=== PATIENT | male | born 1955 | race Caucasian/White ===

== ENCOUNTER → 2016-12-29 | Outpatient (REF) ==
[~2016-12-29] MED LIST: FLEXERIL 1010 MG/TAB PO; FLUOROURACIL5% TP; GLUCOPHAGE1000 MG PO; NORCO 325 MG-51 TAB PO; PRINIVIL10 MG PO; PROSCAR 5MG5 MG PO; TRADJENTA5 MG PO; ZOCOR 10MG10 MG PO
== END ==
LOC: WSOH 09:38
DX: Z02.4 Encounter for examination for driving license (principal)

== ENCOUNTER → 2016-12-31 | Outpatient (REF) | LOC: WSOH 13:04 | DX: Z01.83 Encounter for blood typing (principal) ==

== ENCOUNTER → 2017-02-17 | Outpatient (REF) | LOC: ZLAB.WCH 11:27 | DX: Z01.89 Encounter for other specified special examinations (principal) ==

== ENCOUNTER 2017-04-02 05:09 | Emergency (ER) | payer BC ==
[~2017-04-02] VITALS: Ht 175.3 cm; Wt 96.4 kg
[2017-04-02 05:11] VITALS: BP 167/97; TEMP 98
[2017-04-02] MEDS ORDERED: PRINIVIL10 MG PO (05:15)
[2017-04-02] MEDS ORDERED: GLUCOPHAGE1000 MG PO (05:16)
[2017-04-02] MEDS ORDERED: FLUOROURACIL5% TP (05:16)
[2017-04-02] MEDS ORDERED: TRADJENTA5 MG PO (05:16)
[2017-04-02] MEDS ORDERED: PROSCAR 5MG5 MG PO (05:16)
[2017-04-02] MEDS ORDERED: ZOCOR 10MG10 MG PO (05:16)
[2017-04-02] MEDS ORDERED: NORCO 325 MG-51 TAB PO (06:01)
[2017-04-02] MEDS ORDERED: FLEXERIL 1010 MG/TAB PO (06:01)
[2017-04-02 06:10] VITALS: PULSE 85
== END 2017-04-02 06:10 | disposition home or self-care (01) ==
LOC: COL.ER 05:09
DX: S13.9XXA Sprain of joints and ligaments of unspecified parts of neck, initial encounter (principal); S43.401A Unspecified sprain of right shoulder joint, initial encounter; W22.8XXA Striking against or struck by other objects, initial encounter; E11.9 Type 2 diabetes mellitus without complications; I10 Essential (primary) hypertension; Z79.84 Long term (current) use of oral hypoglycemic drugs

== ENCOUNTER 2017-04-06 10:25 | Outpatient (RCR) | payer OTHER | END 2017-04-16 10:26 | LOC: WSOH 10:25 | DX: S50.11XA Contusion of right forearm, initial encounter (principal); S16.1XXA Strain of muscle, fascia and tendon at neck level, initial encounter; W20.8XXA Other cause of strike by thrown, projected or falling object, initial encounter; Y99.0 Civilian activity done for income or pay ==

== ENCOUNTER → 2017-06-05 | Outpatient (REF) | LOC: ZLAB.WCH 11:39 | DX: Z01.89 Encounter for other specified special examinations (principal) ==

== ENCOUNTER → 2017-07-15 | Outpatient (REF) | LOC: WSOH 10:20 | DX: Z02.89 Encounter for other administrative examinations (principal) ==

== ENCOUNTER → 2017-09-21 | Outpatient (REF) | LOC: ZLAB.WCH 17:48 | DX: Z01.89 Encounter for other specified special examinations (principal) ==

== ENCOUNTER → 2018-01-21 | Outpatient (REF) | LOC: ZLAB.WCH 16:12 | DX: Z01.89 Encounter for other specified special examinations (principal) ==

== ENCOUNTER → 2018-02-16 | Outpatient (REF) | LOC: ZLAB.WCH 18:08 | DX: Z01.89 Encounter for other specified special examinations (principal) | CPT/HCPCS: G0103 ==

== ENCOUNTER → 2018-06-01 | Outpatient (REF) | LOC: ZLAB.WCH 17:36 | DX: Z01.89 Encounter for other specified special examinations (principal) ==

== ENCOUNTER → 2018-10-23 | Outpatient (REF) | LOC: ZLAB.WCH 09:52 | DX: Z01.89 Encounter for other specified special examinations (principal) ==

== ENCOUNTER → 2020-11-19 | Outpatient (CLI) | payer BC | LOC: COL.RAD 08:00 | DX: M25.542 Pain in joints of left hand (principal); M25.541 Pain in joints of right hand | CPT/HCPCS: J3301; Q9967 ==

== ENCOUNTER 2021-09-05 07:56 | Day surgery (SDC) | payer BC ==
[~2021-09-05] VITALS: Ht 175.3 cm; Wt 83.0 kg
[2021-09-05 08:54] VITALS: BP 135/85; PULSE 88; TEMP 97.7
[2021-09-05] MEDS ORDERED: TYLENOL 500MG500 MG PO (09:04)
[2021-09-05] MEDS ORDERED: CARDIZEM CD 12120 MG PO (09:05)
[2021-09-05] MEDS ORDERED: PROSCAR 5MG5 MG PO (09:06)
[2021-09-05] MEDS ORDERED: EPA FISH OIL1 SGL PO (09:07)
[2021-09-05] MEDS ORDERED: AMARYL4 MG PO (09:08)
[2021-09-05] MEDS ORDERED: MOTRIN 200200 MG/TAB PO (09:09)
[2021-09-05] MEDS ORDERED: TRADJENTA5 MG PO (09:10)
[2021-09-05] MEDS ORDERED: PRINIVIL20 MG PO (09:11)
[2021-09-05] MEDS ORDERED: GLUCOPHAGE1000 MG PO (09:11)
[2021-09-05] MEDS ORDERED: MOBIC15 MG PO (09:11)
[2021-09-05] MEDS ORDERED: ZOCOR 10MG10 MG PO (09:12)
[2021-09-05 10:25] VITALS: BP 131/83; PULSE 75
--- NOTE | 2021-09-05 10:25 | NUR ---
Pt to [facility] via cart from [facility]. Pt drowsy, but awake. Pt ambulates to recliner with stand by assitance. Pt denies pain or nausea. Coffee and applesauce given per pt request. in room. Call light within reach.
[2021-09-05 10:40] VITALS: BP 127/76; PULSE 76
--- NOTE | 2021-09-05 10:40 | NUR ---
Pt tolerating po food and fluids without difficulties. Pt denies needs. Call light within reach.
[2021-09-05 10:55] VITALS: BP 118/79; PULSE 76
--- NOTE | 2021-09-05 10:55 | NUR ---
Pt continues to rest. Dr. Garcia in to speak with pt and his .
--- NOTE | 2021-09-05 11:10 | NUR ---
Discharge instructions reviewed. Pt voices understanding. IV site discontinued with all parts intact. Pt up to dress. Call light within reach.
--- NOTE | 2021-09-05 11:20 | NUR ---
Pt escorted to private car via wheel chair. Pt accompanied home by his .
== END 2021-09-05 11:20 | disposition home or self-care (01) ==
LOC: SDCO 07:56
DX: K63.5 Polyp of colon (principal); K22.2 Esophageal obstruction; K21.00 Gastro-esophageal reflux disease with esophagitis, without bleeding; K44.9 Diaphragmatic hernia without obstruction or gangrene; E11.9 Type 2 diabetes mellitus without complications; I10 Essential (primary) hypertension; E66.9 Obesity, unspecified; E78.2 Mixed hyperlipidemia; G47.33 Obstructive sleep apnea (adult) (pediatric); N40.0 Benign prostatic hyperplasia without lower urinary tract symptoms; M17.0 Bilateral primary osteoarthritis of knee; Z79.899 Other long term (current) drug therapy; Z79.84 Long term (current) use of oral hypoglycemic drugs; Z79.1 Long term (current) use of non-steroidal anti-inflammatories (NSAID); Z68.27 Body mass index [BMI] 27.0-27.9, adult
CPT/HCPCS: J2704; J7030